=== PATIENT | female | born 1980 | race African-American/Black ===

== ENCOUNTER 2020-06-24 08:20 | Inpatient (IN) | payer OTHER, BC ==
[2020-06-24 09:16] LABS: BASO % 0.6 % (0-2.0); EOS % 2.8 % (0-4.5); HEMATOCRIT 33.3 % (32.4-45.2); HEMOGLOBIN 11.3 GM/dL (10.7-15.3); LYMPH % 32.2 % (8-40); MCHC 33.9 g/dl (32.0-36.0); MEAN CELL VOLUME 85.7 fl (80-96); MEAN PLT VOLUME 8.3 fl (7.5-11.1); MONO % 7.5 % (3.8-10.2); NEUT % 56.9 % (42.8-82.8); PLATELET COUNT 242 K/MM3 (134-434); RBC 3.89 M/mm3 (3.60-5.2); RDW 14.8 % (11.6-15.6); WHITE BLOOD COUNT 5.3 K/mm3 (4.0-10.0)
[2020-06-24 09:23] LABS: INR 0.86 (0.83-1.09); PROTHROMBIN TIME (PATIENT) 10.4 SEC (9.7-13.0)
[2020-06-24 09:26] LABS: ACTIVATED PTT 30.9 SECONDS (25.2-36.5)
[2020-06-24 09:44] VITALS: BMI 33.6
[2020-06-24 09:48] LABS: BLOOD UREA NITROGEN 9.7 mg/dL (7-18)
[2020-06-24 09:51] LABS: CREATININE 0.6 mg/dL (0.55-1.3)
[2020-06-24 10:43] LABS: HIV INTERPRETATION NEGATIVE (NEGATIVE)
[2020-06-24] MEDS: MISOPROSTOL 100 MCG TABLET PV SCH ×2 (14:45→18:12)
[2020-06-24] MEDS ORDERED: OXYTOCIN 30 UNITS in 0.9% NS 30 UNIT/500 ML INFUS.BAG IVPB ONE (21:28)
[2020-06-24] MEDS: OXYTOCIN 30 UNITS in 0.9% NS 30 UNIT/500 ML INFUS.BAG IVPB SCH (21:30)
[2020-06-25] MEDS ORDERED: BUTORPHANOL TARTRATE 2 MG/ML VIAL IVPB ONE (00:15)
[2020-06-25] MEDS ORDERED: PROMETHAZINE HCL 25 MG/1 ML VIAL IVPB ONE (00:15)
[2020-06-25] MEDS ORDERED: BUTORPHANOL TARTRATE 2 MG/ML VIAL ONE (00:24)
[2020-06-25] MEDS ORDERED: PROMETHAZINE HCL 25 MG/1 ML VIAL ONE (00:25)
[2020-06-25] MEDS ORDERED: MORPHINE SULFATE 2 MG/ML VIAL IVPUSH PRN (03:46)
[2020-06-25] MEDS ORDERED: MORPHINE SULFATE 2 MG/ML VIAL ONE ×2 (04:06→04:10)
[2020-06-25] MEDS ORDERED: INSULIN (NOVOLOG) ASPART 100 UNITS/ML 10ML VIAL SQ ONE ×2 (05:30→20:40)
[2020-06-25] MEDS: DEXTROSE 5%-NORMAL SALINE 1,000 ML IV SCH (07:30)
[2020-06-25] MEDS ORDERED: NIFEdipine E.R. 30 MG TABLET ONE (09:36)
[2020-06-25] MEDS: NIFEdipine E.R 60 MG TABLET PO SCH (10:00)
[2020-06-25] MEDS: INSULIN SLIDING SCALE (NOVOLOG) 1 VIAL SQ SCH ×2 (11:29→17:00)
[2020-06-25] MEDS ORDERED: PENICILLIN G POTASSIUM 20,000,000 (20Mm) UNITS VIAL IVPB ONE (11:38)
[2020-06-25] MEDS ORDERED: PENICILLIN G POTASSIUM 20,000,000 (20Mm) UNITS VIAL IVPB SCH (11:45)
[2020-06-25] MEDS ORDERED: PENICILLIN G POTASSIUM 5,000,000 UNIT in DEXTROSE 5%-WATER - 250 ML IVPB ONE (12:15)
[2020-06-25] MEDS: PENICILLIN G POTASSIUM 2,500,000 UNIT in DEXTROSE 5%-WATER - 250 ML IVPB SCH ×2 (16:15→20:30)
[2020-06-25] MEDS ORDERED: OXYTOCIN 30 UNITS in 0.9% NS 30 UNIT/500 ML INFUS.BAG IVPB ONE (20:25)
[2020-06-26] MEDS: PENICILLIN G POTASSIUM 2,500,000 UNIT in DEXTROSE 5%-WATER - 250 ML IVPB SCH ×5 (00:45→16:55)
[2020-06-26] MEDS: OXYTOCIN 30 UNITS in 0.9% NS 30 UNIT/500 ML INFUS.BAG IVPB SCH (02:21)
[2020-06-26] MEDS ORDERED: INSULIN (NOVOLOG) ASPART 100 UNITS/ML 10ML VIAL SQ ONE (08:15)
[2020-06-26] MEDS ORDERED: SODIUM CHLORIDE 1,000 ML IV SCH (08:45)
[2020-06-26] MEDS: INSULIN SLIDING SCALE (NOVOLOG) 1 VIAL SQ SCH ×3 (08:59→18:15)
[2020-06-26] MEDS: DEXTROSE 5%-NORMAL SALINE 1,000 ML IV SCH (09:03)
[2020-06-26] MEDS: NIFEdipine E.R 60 MG TABLET PO SCH (11:15)
[2020-06-26] MEDS ORDERED: CITRIC ACID/SODIUM CITRATE 30 ML UNIT-DOSE CUP PO ONE (17:41)
[2020-06-26] MEDS ORDERED: OXYTOCIN 20 UNITS in 0.9% NS 20 UNIT/1,000 ML INFUS.BAG IV ONE (19:32)
[2020-06-26] MEDS ORDERED: morphine SULFATE/PF 0.5 MG/ML (2cc Syringe - QUVA) ONE ×2 (19:36→19:41)
[2020-06-26] MEDS ORDERED: EPINEPHrine/PF 1 MG/1 ML (1:1,000) AMPULE ONE (19:38)
[2020-06-26] MEDS ORDERED: EPINEPHrine 1:10,000 (P-F SYR) 1 MG/10 ML DISP.SYRIN ONE (19:42)
[2020-06-26] MEDS ORDERED: OXYTOCIN 10 UNITS/ML VIAL ONE ×2 (20:14)
[2020-06-26 21:23] LABS: CORD HCO3 24.1 mmHg (20-29); CORD PCO2 60.8 mmHg (30-78); CORD pH 7.216 (7.14-7.44)
[2020-06-26 21:26] LABS: CORD BASE EXCESS -8.5 mmol/L (0-2); CORD PCO2 31.1 mmHg (30-78); CORD pH 7.328 (7.14-7.44)
[2020-06-26] MEDS ORDERED: ONDANSETRON 4 MG/2 ML VIAL IVPUSH PRN (21:33)
[2020-06-26] MEDS ORDERED: ACETAMINOPHEN INJECTION 100 ML IVPB ONE (22:16)
[2020-06-26] MEDS: ACETAMINOPHEN 1000 MG/100 ML VIAL (NON FORMULARY) IVPB PRN (22:28)
[2020-06-27] MEDS: PENICILLIN G POTASSIUM 2,500,000 UNIT in DEXTROSE 5%-WATER - 250 ML IVPB SCH (00:34)
[2020-06-27] MEDS: INSULIN SLIDING SCALE (NOVOLOG) 1 VIAL SQ SCH ×2 (00:39→07:11)
[2020-06-27] MEDS: IBUPROFEN 600 MG TABLET (FP) PO PRN ×3 (02:33→20:11)
[2020-06-27] MEDS: DEXTROSE 5%-NORMAL SALINE 1,000 ML IV SCH (03:59)
[2020-06-27] MEDS: OXYTOCIN 30 UNITS in 0.9% NS 30 UNIT/500 ML INFUS.BAG IVPB SCH (04:00)
[2020-06-27] MEDS ORDERED: METHYLERGONOVINE MALEATE 0.2 MG/1 ML AMP IM PRN (04:38)
[2020-06-27] MEDS: ACETAMINOPHEN 1000 MG/100 ML VIAL (NON FORMULARY) IVPB PRN (05:27)
[2020-06-27] MEDS: SIMETHICONE 80 MG TAB.CHEW (FP) PO PRN ×2 (05:28→20:11)
[2020-06-27] MEDS: NIFEdipine E.R 60 MG TABLET PO SCH (13:46)
[2020-06-27] MEDS: oxyCODONE HCL 5 MG TABLET PO PRN (14:13)
[2020-06-28] MEDS ORDERED: BISACODYL 10 MG SUPP.RECT RC PRN (04:38)
[2020-06-28] MEDS: IBUPROFEN 600 MG TABLET (FP) PO PRN ×3 (04:54→21:12)
[2020-06-28] MEDS: oxyCODONE HCL 5 MG TABLET PO PRN ×3 (04:54→21:11)
[2020-06-28] MEDS: SIMETHICONE 80 MG TAB.CHEW (FP) PO PRN ×3 (04:54→21:10)
[2020-06-28 07:01] LABS: BASO % 0.3 % (0-2.0); EOS % 2.5 % (0-4.5); HEMATOCRIT 20.4 % (32.4-45.2); MCH 29.3 pg (25.7-33.7); MCHC 34.1 g/dl (32.0-36.0); MEAN PLT VOLUME 8.3 fl (7.5-11.1); MONO % 7.7 % (3.8-10.2); NEUT % 66.5 % (42.8-82.8); PLATELET COUNT 203 K/MM3 (134-434); RBC 2.37 M/mm3 (3.60-5.2); RDW 14.9 % (11.6-15.6); WHITE BLOOD COUNT 6.4 K/mm3 (4.0-10.0)
[2020-06-28 07:20] LABS: HEMOGLOBIN 6.9 GM/dL (10.7-15.3)
[2020-06-28] MEDS: NIFEdipine E.R 60 MG TABLET PO SCH ×2 (07:34→11:32)
[2020-06-28] MEDS ORDERED: IRON SUCROSE INJECTION 200 MG in SODIUM CHLORIDE 90 ML IVPB ONE (09:00)
[2020-06-28] MEDS: FERROUS SO4 325 MG TABLET (FP) PO SCH ×2 (11:24→21:18)
[2020-06-29] MEDS: IBUPROFEN 600 MG TABLET (FP) PO PRN ×3 (05:39→19:06)
[2020-06-29] MEDS: SIMETHICONE 80 MG TAB.CHEW (FP) PO PRN ×2 (05:39→19:06)
[2020-06-29] MEDS: oxyCODONE HCL 5 MG TABLET PO PRN ×4 (05:40→19:07)
[2020-06-29] MEDS: FERROUS SO4 325 MG TABLET (FP) PO SCH ×2 (10:14→21:54)
[2020-06-29] MEDS: NIFEdipine E.R 60 MG TABLET PO SCH (10:14)
[2020-06-29 12:19] LABS: BASO % 0.2 % (0-2.0); HEMATOCRIT 21.3 % (32.4-45.2); HEMOGLOBIN 7.3 GM/dL (10.7-15.3); MCH 29.1 pg (25.7-33.7); MCHC 34.2 g/dl (32.0-36.0); MEAN CELL VOLUME 85.1 fl (80-96); MEAN PLT VOLUME 7.2 fl (7.5-11.1); MONO % 6.5 % (3.8-10.2); NEUT % 72.3 % (42.8-82.8); PLATELET COUNT 245 K/MM3 (134-434); RBC 2.51 M/mm3 (3.60-5.2); RDW 14.8 % (11.6-15.6); WHITE BLOOD COUNT 8.2 K/mm3 (4.0-10.0)
[2020-06-30] MEDS: SIMETHICONE 80 MG TAB.CHEW (FP) PO PRN ×2 (06:05→15:06)
[2020-06-30] MEDS: IBUPROFEN 600 MG TABLET (FP) PO PRN ×3 (06:05→14:59)
[2020-06-30 07:16] LABS: BASO % 0.3 % (0-2.0); EOS % 3.7 % (0-4.5); HEMATOCRIT 21.3 % (32.4-45.2); HEMOGLOBIN 7.1 GM/dL (10.7-15.3); LYMPH % 22.3 % (8-40); MCH 29.2 pg (25.7-33.7); MCHC 33.3 g/dl (32.0-36.0); MEAN CELL VOLUME 87.6 fl (80-96); MEAN PLT VOLUME 7.7 fl (7.5-11.1); MONO % 9.7 % (3.8-10.2); PLATELET COUNT 255 K/MM3 (134-434); RBC 2.44 M/mm3 (3.60-5.2); RDW 14.8 % (11.6-15.6); WHITE BLOOD COUNT 4.3 K/mm3 (4.0-10.0)
[2020-06-30] MEDS: FERROUS SO4 325 MG TABLET (FP) PO SCH (10:08)
[2020-06-30] MEDS: NIFEdipine E.R 60 MG TABLET PO SCH (10:08)
[2020-06-30 14:07] VITALS: BP 139/89; PULSE 90; TEMP 97.8
== END 2020-06-30 17:30 | disposition home or self-care (01) | DRG 786 ==
LOC: JLDR 08:20 → J3W 06-27
PROVIDERS: ADMIT Obstetrics & Gynecology Maternal & Fetal Medicine; ATTEND Obstetrics & Gynecology Maternal & Fetal Medicine
PROC: 3E0DXGC Introduction of Other Therapeutic Substance into Mouth and Pharynx, External Approach (ICD-10-PCS; 2020-06-24)
PROC: 10D00Z1 Extraction of Products of Conception, Low, Open Approach (ICD-10-PCS; principal; 2020-06-26)
DX: O36.63X0 Maternal care for excessive fetal growth, third trimester, not applicable or unspecified (principal); O24.02 Pre-existing type 1 diabetes mellitus, in childbirth; O10.92 Unspecified pre-existing hypertension complicating childbirth; O90.81 Anemia of the puerperium; D64.9 Anemia, unspecified; Z3A.37 37 weeks gestation of pregnancy; Z37.0 Single live birth; Z79.4 Long term (current) use of insulin
CPT/HCPCS: 36415; 36600; 80048; 82803; 82962; 83525; 85025; 85610; 85730; 86780; 86803; 86850; 86900; 86901; 87389; 88307-TC; J0131; J1756

== ENCOUNTER 2020-07-15 13:30 | Emergency (ER) | payer OTHER, BC ==
[2020-07-15 13:35] VITALS: BMI 29.7
[2020-07-15 15:30] LABS: HEMATOCRIT 31.6 % (32.4-45.2); HEMOGLOBIN 10.3 GM/dL (10.7-15.3); LYMPH % 9.2 % (8-40); MCH 27.6 pg (25.7-33.7); MCHC 32.6 g/dl (32.0-36.0); MEAN CELL VOLUME 84.4 fl (80-96); MONO % 0.8 % (3.8-10.2); PLATELET COUNT 487 K/MM3 (134-434); RBC 3.75 M/mm3 (3.60-5.2); RDW 15.6 % (11.6-15.6); WHITE BLOOD COUNT 7.9 K/mm3 (4.0-10.0)
[2020-07-15 15:51] LABS: ALBUMIN 3.6 g/dl (3.4-5.0); CALCIUM 9.2 mg/dL (8.5-10.1)
[2020-07-15 15:54] LABS: CREATININE 0.7 mg/dL (0.55-1.3)
[2020-07-15 15:56] LABS: BILIRUBIN,TOTAL 0.3 mg/dL (0.2-1); TOT PROT 7.4 g/dl (6.4-8.2)
[2020-07-15 19:05] VITALS: BP 138/85; PULSE 88; TEMP 99.3
== END 2020-07-15 19:04 | disposition home or self-care (01) ==
LOC: JER 13:30
DX: K59.00 Constipation, unspecified (principal); R11.2 Nausea with vomiting, unspecified; K80.80 Other cholelithiasis without obstruction
CPT/HCPCS: 36415; 74019-TC-FY; 76705-TC; 76856-TC; 80053; 83690; 85025; 99285-25

== ENCOUNTER 2022-05-06 18:40 | Emergency (ER) | payer BC ==
[2022-05-06 18:51] VITALS: BP 154/85; PULSE 110; RESP 18; TEMP 98.4; BMI 69.0
[2022-05-06] MEDS ORDERED: SODIUM CHLORIDE 0.9% 500 ML INFUS.BAG IV ONE (19:32)
[2022-05-06] MEDS ORDERED: ACETAMINOPHEN 1000 MG/100 ML BAG IVPB ONE (19:32)
[2022-05-06] MEDS ORDERED: ACETAMINOPHEN INJECTION 100 ML IVPB ONE (19:57)
[2022-05-06 20:53] LABS: BASO % 0.2 % (0-2.0); EOS % 0.5 % (0-4.5); HEMATOCRIT 39.3 % (32.4-45.2); LYMPH % 26.4 % (8-40); MCH 26.8 pg (25.7-33.7); MCHC 33.2 g/dl (32.0-36.0); MEAN CELL VOLUME 80.8 fl (80-96); MEAN PLT VOLUME 7.7 fl (7.5-11.1); MONO % 4.8 % (3.8-10.2); NEUT % 68.1 % (42.8-82.8); PLATELET COUNT 401 10^3/uL (134-434); RBC 4.86 M/mm3 (3.60-5.2); RDW 14.6 % (11.6-15.6); URINE APPEARANCE CLEAR; URINE BILIRUBIN NEGATIVE (NEGATIVE); URINE COLOR YELLOW; URINE GLUCOSE (UA) NEGATIVE (NEGATIVE); URINE KETONE TRACE (NEGATIVE); URINE LEUK ESTERASE NEGATIVE (NEGATIVE); URINE NITRITE NEGATIVE (NEGATIVE); URINE PROTEIN NEGATIVE (NEGATIVE); URINE UROBILINOGEN 0.2 mg/dL (0.2-1.0); WHITE BLOOD COUNT 6.3 K/mm3 (4.0-10.0)
[2022-05-06 21:08] LABS: ALBUMIN 3.8 g/dl (3.4-5.0); BLOOD UREA NITROGEN 12.4 mg/dL (7-18); CALCIUM 9.5 mg/dL (8.5-10.1); MAGNESIUM 1.9 mg/dL (1.8-2.4)
[2022-05-06 21:11] LABS: CREATININE 0.8 mg/dL (0.55-1.3)
[2022-05-06 21:12] LABS: BILIRUBIN,TOTAL 0.4 mg/dL (0.2-1); TOT PROT 7.7 g/dl (6.4-8.2)
== END 2022-05-06 23:55 | disposition home or self-care (01) ==
LOC: JERFT 18:40
PROC: 3E033NZ Introduction of Analgesics, Hypnotics, Sedatives into Peripheral Vein, Percutaneous Approach (ICD-10-PCS; principal; 2022-05-06)
DX: R10.32 Left lower quadrant pain (principal); R10.33 Periumbilical pain; R19.7 Diarrhea, unspecified; Z20.822 Contact with and (suspected) exposure to COVID-19
CPT/HCPCS: 0241U-QW; 36415; 74177-TC; 80053; 81003; 83690; 83735; 84703; 85025; 87086; 87186; 93005; 93010; 99285-25; Q9967